=== PATIENT | female | born 1950 | race American Indian/Alaskan Native ===

== ENCOUNTER 2016-10-11 12:07 | Emergency (ER) | payer OTHER ==
[2016-10-11 12:11] VITALS: BMI 25.2
[2016-10-11 12:15] VITALS: TEMP 97.9; O2SAT 98
[2016-10-11] MEDS ORDERED: TDAP Vaccine 0.5 mL Syr IM ONE (13:57)
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
[2016-10-11 14:33] VITALS: BP 138/73; PULSE 58; RESP 16
== END 2016-10-11 14:32 | disposition home or self-care (01) ==
LOC: ED 12:07 → MERGE 12:07 → ED 14:32
DX: S81.812A Laceration without foreign body, left lower leg, initial encounter (principal); V18.0XXA Pedal cycle driver injured in noncollision transport accident in nontraffic accident, initial encounter; Y93.55 Activity, bike riding; Y92.89 Other specified places as the place of occurrence of the external cause; Z23 Encounter for immunization

== ENCOUNTER 2016-10-20 12:33 | Emergency (ER) | payer OTHER ==
[2016-10-20 12:48] VITALS: TEMP 98.2; O2SAT 100; BMI 26.0
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
[2016-10-20 13:12] VITALS: BP 145/82; PULSE 70; RESP 17
== END 2016-10-20 13:11 | disposition home or self-care (01) ==
LOC: ED 12:33
DX: Z48.02 Encounter for removal of sutures (principal)